=== PATIENT | male | born 1950 | race Caucasian/White ===

== ENCOUNTER → 2019-05-16 | Outpatient (CLI) | payer MEDICARE | END | disposition home or self-care (01) | LOC: PCVCCLINIC 14:30 | PROVIDERS: ATTEND Internal Medicine | DX: I10 Essential (primary) hypertension (principal); R06.02 Shortness of breath; E78.5 Hyperlipidemia, unspecified; G47.33 Obstructive sleep apnea (adult) (pediatric); R73.03 Prediabetes; Z79.82 Long term (current) use of aspirin | CPT/HCPCS: 36415; 80061; 93005; G0463 ==

== ENCOUNTER → 2019-05-24 | Outpatient (CLI) | payer MEDICARE ==
[~2019-05-24] MED LIST: REGADENOSON 0.4 MG/5 ML DISP.SYRIN. IV ONE
--- NOTE | 2019-05-24 09:14 | PCVCIMAG ---
APPROVED REPORT Study performed: 05/24/2019 07:55:10 EXAM: Comprehensive 2D, Doppler, and color-flow Echocardiogram Patient Location: Echo lab Room #: 2Status: routine BSA: 2.02 HR: 60 bpmBP: 126/78 mmHg Rhythm: NSR Other Information Study Quality: Good Risk Factors: Cardiac Risk Factors: HTN, Hyperlipidemia Indications Dyspnea Hypertension/HDD 2D Dimensions IVSd: 10.01 (7-11mm)LVOT Diam: 22.65 (18-24mm) LVDd: 46.02 mm PWd: 10.35 (7-11mm) LVDs: 32.47 (25-40mm) Left Atrium: 34.34 (27-40mm) Aortic Root: 25.51 mm LV Single Plane 4CH: 63.52 % LV Single Plane 2CH: 56.58 % Biplane EF: 59.9 % Volumes Left Atrial Volume (Systole) Single Plane 4CH: 56.61 mLSingle Plane 2CH: 53.09 mL Biplane LA Volume: 57.00 mLLA ESV Index: 28.00 mL/m2 Aortic Valve AoV Peak Jordin.: 1.47 m/s AO Peak Gr.: 8.59 mmHgLVOT Max P.73 mmHg LVOT Max V: 0.94 m/s RIGO Vmax: 2.57 cm2 Mitral Valve E/A Ratio: 1.2 MV Decel. Time: 209.87 ms MV E Max Jordin.: 0.79 m/s MV A Jordin.: 0.68 m/s IVRT: 83.04 ms TDI E/Lateral E': 6.58E/Medial E': 9.88 Medial E' Jordin.: 0.08 m/s Lateral E' Jordin.: 0.12 m/s Pulmonary Valve PV Peak Jordin.: 1.03 m/sPV Peak Gr.: 4.20 mmHg Pulmonary Vein P Vein S: 0.69 m/sP Vein A: 0.30 m/s P Vein D: 0.66 m/sP Vein A Dur.: 76.1 msec P Vein S/D Ratio: 1.05 Tricuspid Valve TR Peak Jordin.: 1.99 m/s TR Peak Gr.: 15.86 mmHg TV Vmax: 0.41 m/sPA Pressure: 23.00 mmHg Left Ventricle The left ventricle is normal size. There is normal LV segmental wall motion. There is normal left ventricular wall thickness. Left ventricular systolic function is normal. The left ventricular ejection fraction is within the normal range. LVEF is 60%. The left ventricular diastolic function is normal. Right Ventricle The right ventricle is normal size. The right ventricular systolic function is normal. Atria The left atrium size is normal. The right atrium size is normal. Aortic Valve Aortic valve is trileaflet. The aortic valve is normal in structure and function. No aortic regurgitation is present. There is no aortic valvular stenosis. Mitral Valve The mitral valve is normal in structure. There is no mitral valve regurgitation noted. No evidence of mitral valve stenosis. Tricuspid Valve The tricuspid valve is normal in structure. Trace tricuspid regurgitation with a PA pressure of 23 mmHg. No pulmonary hypertension. Pulmonic Valve The pulmonary valve is normal in structure. There is no pulmonic valvular regurgitation. Great Vessels The aortic root is normal in size. The ascending aorta is not well seen. Aortic arch is normal in caliber. IVC is normal in size and collapses >50% with inspiration. Pericardium There is no pericardial effusion. There is no pleural effusion. <Conclusion> Left ventricular systolic function is normal. There is normal LV segmental wall motion. LVEF is 60%. Normal diastolic function Aortic valve is trileaflet. No aortic regurgitation or stenosis The mitral valve is normal in structure. No mitral valve regurgitation. Trace tricuspid regurgitation with a pulmonary artery pressure of 23 mmHg. There is no pericardial effusion.
--- NOTE | 2019-05-25 07:38 | PCVCIMAG ---
APPROVED REPORT Imaging Protocol: Rest Tc-99m/Stress Tc-99m 1 day Study performed: 05/24/2019 09:21:02 Indication: Chest pain, Dyspnea, Syncope Patient Location: Out-Patient Stress Nurse: Ethel Sherwood RN [place] Tech:Shweta Archibald [facility] Ht: 5 ft 6 in Wt: 206 lbs BSA: 2.02 m2 HR: 61 bpm BP: 133/78 mmHg BMI: 33.2 Rhythm: Sinus Rhythm, 1st degree AV block, Incomplete RBBB Medical History Medical History: Hyperlipidemia Medications: ASA, Atorvastatin, Losartan-HCTZ, Omeprazole Allergies: Hydrocodone, Morphine Cardiac Risk Factors: Age Pretest Chest Pain Characteristics: No chest pain Exercise History: Indeterminate Resting Data Rest SPECT myocardial perfusion imaging was performed in supine position 45 minutes following the intravenous injection of 10.3 mCi of Tc-99m Sestamibi. Time of rest injection: 0900 Date: 05/24/2019 Administration Route: IV Administration Site: Right Hand Pharmacologic Stress Pharmacologic stress test was performed by injecting Regadenoson 0.4 mg IV push over 10-15 seconds immediately followed by the intravenous injection of 32.5 mCi of Tc-99m Sestamibi. Time of stress injection: 1020 Date: 05/24/2019 Administration Route: IV Administration Site: Right Hand Gated Stress SPECT was performed 45 minutes after stress injection. The images were gated to evaluate regional wall motion and calculate left ventricular ejection fraction. Stress Test Details Stress Test: Pharmacologic stress testing performed using 0.4 mg of regadenoson per 5 mL given IV over 10 seconds. Reason for pharmacologic stress test: Dizziness. HRMax Heart Rate (APMHR): 150 bpm Resting HR: 61 bpmTarget HR (85% APMHR): 127 bpm Max HR Achieved: 85 bpm % of APMHR: 56 Recovery HR: 67 bpm BP Resting BP: 133/78 mmHg Max BP: 149/78 mmHg Recovery BP: 127/73 mmHg ECG Resting ECG: Sinus Rhythm, 1st degree AV block, Incomplete RBBB Stress ECG: Sinus Rhythm, 1st degree AV block ST Change: None Maximum ST Deviation: 0 mm Arrhythmia: None Recovery ECG: Sinus Rhythm, 1st degree AV block Recovery ST Change: None Recovery ST Deviation: 0 mm Recovery Arrhythmia: None Clinical Reason for Termination: Completed protocol Stress Symptoms: Dizziness, Lightheaded Exercise duration: min 55 sec Symptoms resolved with caffeine. Stress ECG Conclusion ECG: Non-ischemic Clinical: Non-ischemic Study Quality Study: Good Study Data Post stress, the left ventricular ejection was 69%.. SSS: 0 SRS: 1 SDS: 0 TID = 1.07. Perfusion No evidence of stress induced ischemia or prior myocardial infarction. Wall Motion Normal left ventricular size and function with no regional wall motion abnormalities. Nuclear Conclusion No evidence of stress induced ischemia or prior myocardial infarction. Normal left ventricular size and function with no regional wall motion abnormalities. Post stress, the left ventricular ejection was 69%. No prior study available for comparison. Interpreted by: Justin Calderon MD Electronically Approved: 05/24/2019 21:20:46 <Conclusion> ECG: Non-ischemic Clinical: Non-ischemic
== END | disposition home or self-care (01) ==
LOC: PCVCIMAG 07:45
PROVIDERS: ATTEND Internal Medicine
DX: R06.09 Other forms of dyspnea (principal); R55 Syncope and collapse; E78.5 Hyperlipidemia, unspecified; I10 Essential (primary) hypertension; Z88.5 Allergy status to narcotic agent; Z88.6 Allergy status to analgesic agent
CPT/HCPCS: 78452; 93017; 93306; A9500; J2785

== ENCOUNTER → 2019-06-05 | Outpatient (CLI) | payer MEDICARE | END | disposition home or self-care (01) | LOC: PCVCCLINIC 13:00 | PROVIDERS: ATTEND Internal Medicine | DX: I10 Essential (primary) hypertension (principal); E78.5 Hyperlipidemia, unspecified; G47.33 Obstructive sleep apnea (adult) (pediatric); R73.03 Prediabetes; Z88.5 Allergy status to narcotic agent | CPT/HCPCS: G0463 ==